=== PATIENT | male | born 1955 | race Two or more races ===

== ENCOUNTER 2024-09-30 12:17 | Emergency (ER) | payer OTHER ==
[2024-09-30 12:49] VITALS: BP 142/75; PULSE 82; RESP 18; TEMP 97.2; BMI 29.2
[2024-09-30 15:03] LABS: HIV INTERPRETATION NEGATIVE (NEGATIVE)
== END 2024-09-30 14:32 | disposition home or self-care (01) ==
LOC: FER 12:17
DX: S82.64XA Nondisplaced fracture of lateral malleolus of right fibula, initial encounter for closed fracture (principal); X50.1XXA Overexertion from prolonged static or awkward postures, initial encounter
CPT/HCPCS: 36415; 73610-TC-RT-FY; 73630-TC-RT-FY; 86803; 87389; 99284-25